=== PATIENT | female | born 1990 | race Caucasian/White ===

== ENCOUNTER 2019-03-06 16:46 | Emergency (ER) | payer OTHER ==
[~2019-03-06] VITALS: Ht 170.2 cm; Wt 132.9 kg
[2019-03-06 18:10] VITALS: BP 139/101
== END 2019-03-06 19:11 | disposition home or self-care (01) ==
LOC: ED 18:05
DX: N23 Unspecified renal colic (principal)
CPT/HCPCS: 36415; 74176; 80048; 82040; 84703; 85025; 96372; 99284; J1885

== ENCOUNTER 2019-03-07 02:01 | Inpatient (IN) | payer OTHER ==
[~2019-03-07] VITALS: Ht 167.6 cm; Wt 136.4 kg
[2019-03-07 08:04] VITALS: BP 101/70
== END 2019-03-07 14:09 | disposition home or self-care (01) | DRG 683 ==
LOC: ED 03:13 → EDIP 03:54 → 5SO 05:15
PROVIDERS: ADMIT Family Medicine; ATTEND Family Medicine
PROC: 0T9B70Z Drainage of Bladder with Drainage Device, Via Natural or Artificial Opening (ICD-10-PCS; principal; 2019-03-07)
DX: N17.9 Acute kidney failure, unspecified (principal); N20.2 Calculus of kidney with calculus of ureter; Z68.42 Body mass index [BMI] 45.0-49.9, adult; D72.829 Elevated white blood cell count, unspecified; E28.2 Polycystic ovarian syndrome; E66.01 Morbid (severe) obesity due to excess calories; E86.0 Dehydration; F12.90 Cannabis use, unspecified, uncomplicated
CPT/HCPCS: 36415; 80053; 80061; 81001; 81025; 84443; 85025; 93005; 96361; 96374; 96375; G0378; J1644; J1885; J2405; J2270; J7030; J7120

== ENCOUNTER 2019-03-07 21:47 | Emergency (ER) | payer OTHER ==
[~2019-03-07] VITALS: Ht 170.2 cm; Wt 133.7 kg
[2019-03-08 01:52] VITALS: BP 136/89
== END 2019-03-08 01:56 | disposition home or self-care (01) ==
LOC: ED 22:04
DX: N13.2 Hydronephrosis with renal and ureteral calculous obstruction (principal); Z87.42 Personal history of other diseases of the female genital tract
CPT/HCPCS: 74176; 81001; 87086; 96374; 96375; 96376; 99284; J1170; J2405

== ENCOUNTER 2020-02-28 08:45 | Emergency (ER) | payer OTHER ==
[~2020-02-28] VITALS: Ht 170.2 cm; Wt 140.7 kg
[~2020-02-28 08:45] MED LIST: HYDR-3240 PO; IBUP-1624 PO; INDO50CA15 PO; METF850T10 PO; ONDA4TAB7 PO; TYLENOL PM PO
[2020-02-28] MEDS ORDERED: ONDANSETRON 2MG/ML, 2ML ONE (09:10)
[2020-02-28] MEDS ORDERED: MORPHINE SULFATE 4 MG/ML, 1ML ONE ×2 (09:11→09:44)
--- NOTE | 2020-02-28 09:21 | NUR ---
ULTRASOUND DELAY- PT REQUESTING MEDS.
[2020-02-28] MEDS ORDERED: ONDANSETRON 2MG/ML, 2ML IVPush ONE (09:30)
[2020-02-28] MEDS ORDERED: SODIUM CHLORIDE FLUSH 10ML SYR IVF ONE (09:30)
[2020-02-28] MEDS: MORPHINE SULFATE 4 MG/ML, 1ML IVPush PRN ×2 (09:30→09:48)
[2020-02-28 09:32] LABS: BASOPHILS # (AUTO) 0.03 x10^3/uL (0-0.1); BASOPHILS % (AUTO) 0 % (0-1); EOSINOPHILS # (AUTO) 0.53 x10^3/uL (0-0.4); EOSINOPHILS % (AUTO) 4 % (1-7); LYMPHOCYTES # (AUTO) 4.56 x10^3/uL (1-3.4); LYMPHOCYTES % (AUTO) 37 % (22-44); MD NO; MEAN CORPUSCULAR HEMOGLOBIN 29.8 pg (27.0-34.8); MEAN CORPUSCULAR HGB CONC 32.5 g/dL (32.4-35.8); MEAN CORPUSCULAR VOLUME 91.8 fL (80-100); MEAN PLATELET VOLUME 6.9 fL (7.4-10.4); MONOCYTES # (AUTO) 0.57 x10^3/uL (0.2-0.8); MONOCYTES % (AUTO) 5 % (2-9); NEUTROPHILS # (AUTO) 6.53 x10^3/uL (1.8-6.8); NEUTROPHILS % (AUTO) 54 % (42-75); PLATELET COUNT 336 x10^3/uL (130-400); RED BLOOD COUNT 4.98 x10^6/uL (3.82-5.3); RED CELL DISTRIBUTION WIDTH 14.3 % (9.6-15.2)
[2020-02-28 09:47] LABS: ALBUMIN 3.6 g/dL (3.4-5.0); ANION GAP 8 mmol/L (5-15); CHLORIDE 112 mmol/L (98-107); CREATININE 1.06 mg/dL (0.55-1.02)
--- NOTE | 2020-02-28 09:51 | NUR ---
REPORT RECEIVED FROM RIN ECHAVARRIA. [facility]
--- NOTE | 2020-02-28 09:55 | NUR ---
pt presents to ED with c/o right lower abd pain radiating to right back and difficulty urinating since last night. pt is a&o, resps even and unlabored, pt is anxious and continually complaining of severe pain. on arrival, pt's pain level is 10/10, after one dose morphine pt's pain had only improved to 9/10. second dose administered. pt attached to all monitors, provider updated with vital signs. pt refused to ambulate to bathroom for clean catch urine sample, order received for straight cath ua. pt straight cath'd, sterile technique maintained. sample walked to lab. bp and spo2 monitors in place. call light in reach. pt awaiting us and dispo. report given at bedside to RIN Harris who is assuming care.
[2020-02-28 09:57] LABS: MICROSCOPIC AUTO
[2020-02-28] MEDS ORDERED: HYDROmorphone 1 MG/ML, 1ML INJ ONE (10:43)
[2020-02-28] MEDS ORDERED: HYDROmorphone 2 MG/ML, 1ML IVPush PRN (11:00)
--- NOTE | 2020-02-28 11:11 | NUR ---
PT REQUESTING MORE PAIN MEDS. NOTIFIED OF PTS HR OF 50. STATES IT "OK TO GIVE PAIN MED"
[2020-02-28] MEDS ORDERED: KETOROLAC 30 MG/1 ML ONE (11:39)
[2020-02-28 11:47] VITALS: BP 147/82
[2020-02-28] MEDS ORDERED: KETOROLAC 30 MG/1 ML IVPush ONE (12:00)
== END 2020-02-28 12:18 | disposition home or self-care (01) ==
LOC: ED 10:23
DX: N20.1 Calculus of ureter (principal); N23 Unspecified renal colic; R94.31 Abnormal electrocardiogram [ECG] [EKG]; R11.2 Nausea with vomiting, unspecified
CPT/HCPCS: 36415; 74176; 76830; 80048; 81001; 82040; 84703; 85025; 93005; 96374; 96375; 99285; J1170; J1885; J2270; J2405

== ENCOUNTER 2020-03-21 18:34 | Emergency (ER) | payer OTHER ==
[~2020-03-21] VITALS: Ht 167.6 cm; Wt 139.8 kg
[2020-03-21 19:40] LABS: ANION GAP 5 mmol/L (5-15); CALCIUM 9.5 mg/dL (8.5-10.1); CHLORIDE 111 mmol/L (98-107); CREATININE 0.93 mg/dL (0.55-1.02)
[2020-03-21 19:45] LABS: BASOPHILS # (AUTO) 0.05 x10^3/uL (0-0.1); BASOPHILS % (AUTO) 0 % (0-1); EOSINOPHILS # (AUTO) 0.46 x10^3/uL (0-0.4); EOSINOPHILS % (AUTO) 4 % (1-7); LYMPHOCYTES # (AUTO) 3.24 x10^3/uL (1-3.4); LYMPHOCYTES % (AUTO) 27 % (22-44); MD NO; MEAN CORPUSCULAR HEMOGLOBIN 30.2 pg (27.0-34.8); MEAN CORPUSCULAR VOLUME 91.4 fL (80-100); MEAN PLATELET VOLUME 7.8 fL (7.4-10.4); MONOCYTES % (AUTO) 6 % (2-9); NEUTROPHILS # (AUTO) 7.69 x10^3/uL (1.8-6.8); NEUTROPHILS % (AUTO) 63 % (42-75); PLATELET COUNT 283 x10^3/uL (130-400); RED BLOOD COUNT 5.07 x10^6/uL (3.82-5.3); RED CELL DISTRIBUTION WIDTH 13.8 % (9.6-15.2)
[2020-03-21 20:13] LABS: MICROSCOPIC NOT IND
--- NOTE | 2020-03-21 20:28 | NUR ---
pt to room from lobby
[2020-03-21 21:18] VITALS: BP 132/93
[2020-03-21 21:32] LABS: HCG UR SG 1.024 (1.003-1.030)
== END 2020-03-22 01:24 | disposition home or self-care (01) ==
LOC: ED 03-22 01:15
DX: N83.292 Other ovarian cyst, left side (principal); R10.9 Unspecified abdominal pain; R11.2 Nausea with vomiting, unspecified; R10.30 Lower abdominal pain, unspecified
CPT/HCPCS: 36415; 76770; 76830; 80048; 81003; 81025; 85025; 99285